=== PATIENT | male | born 1935 | race Caucasian/White ===

== ENCOUNTER 2020-08-10 10:20 | Emergency (ER) | payer MEDICARE, OTHER ==
[2020-08-10 10:39] VITALS: PULSE 64
--- NOTE | 2020-08-10 10:43 | EDM.PDOC ---
ED HPI GENERAL MEDICAL PROBLEM - General Chief Complaint: General Stated Complaint: WEAKNESS Time Seen by Provider: 08/10/20 10:35 Source of Information: Reports: Patient History Limitations: Reports: No Limitations - History of Present Illness INITIAL COMMENTS - FREE TEXT/NARRATIVE: 85 yo gentleman who was brought to the ER by EMS with concerns for generalized weakness. Patient lives alone. Reports that while attempting to get up from his recliner, he felt very weak as if he was going to Fall. Patient called his grand ruben who called EMS and patient was brought to the ER Denied any chest pain, nausea, vomiting or abdominal pain. Was brought to the ER due to worsening symptoms. Onset: Today Duration: Hour(s): (2 hours ago), Day(s): Location: Reports: Generalized - Related Data Allergies Allergy/AdvReac Type Severity Reaction Status Date / Time No Known Allergies Allergy Verified 08/07/16 13:46 Home Meds: Home Meds Aspirin [Adult Low Dose Aspirin EC] 81 mg PO DAILY 08/07/16 [History] Lisinopril/Hydrochlorothiazide [Lisinopril-Hctz 20-12.5 mg Tab] 1 tab PO DAILY 08/07/16 [History] Multivitamin [Multivitamins] 1 tab PO DAILY 08/07/16 [History] Polyethylene Glycol 3350 [MiraLAX] 1 dose PO DAILY 08/07/16 [History] Cephalexin [Keflex] 500 mg PO TID #30 cap 08/08/16 [Rx] Melatonin 5 mg PO BEDTIME PRN #30 tablet 08/08/16 [Rx] Meclizine [Antivert] 25 mg PO TID PRN #20 tab 08/10/20 [Rx] Past Medical History HEENT History: Reports: Hard of Hearing, Impaired Vision Cardiovascular History: Reports: Hypertension Respiratory History: Reports: None Gastrointestinal History: Reports: None Genitourinary History: Reports: None Musculoskeletal History: Reports: None Neurological History: Reports: None Psychiatric History: Reports: None Endocrine/Metabolic History: Reports: None Hematologic History: Reports: None Oncologic (Cancer) History: Reports: None Dermatologic History: Reports: None - Infectious Disease History Infectious Disease History: Reports: Chicken Pox, Measles, Mumps - Past Surgical History HEENT Surgical History: Reports: None Cardiovascular Surgical History: Reports: None Social & Family History - Family History Family Medical History: Noncontributory OBGYN: Reports: Endocrine/Metabolic: Reports: Diabetes, type II (brother) Other Endocrine/Metabolic Family History: brother Oncologic: Reports: Colon (brother) Other Oncologic Family History: renal cell carcinoma daughter - Living Situation & Occupation Living situation: Reports: Occupation: Retired ED ROS GENERAL - Review of Systems Review Of Systems: See Below Constitutional: Reports: Weakness HEENT: Reports: No Symptoms Respiratory: Reports: No Symptoms Cardiovascular: Reports: No Symptoms Endocrine: Reports: No Symptoms GI/Abdominal: Reports: No Symptoms : Reports: No Symptoms Musculoskeletal: Reports: No Symptoms Skin: Reports: No Symptoms Neurological: Reports: No Symptoms Psychiatric: Reports: No Symptoms Hematologic/Lymphatic: Reports: No Symptoms Immunologic: Reports: No Symptoms ED EXAM, GENERAL - Physical Exam Exam: See Below Exam Limited By: No Limitations General Appearance: Alert, WD/WN, No Apparent Distress Eye Exam: Bilateral Eye: PERRL Ears: Normal External Exam, Normal Canal, Hearing Grossly Normal, Normal TMs Ear Exam: Bilateral Ear: Auricle Normal Nose: Normal Inspection, Normal Mucosa, No Blood Throat/Mouth: Normal Inspection Head: Atraumatic, Normocephalic Neck: Normal Inspection Respiratory/Chest: No Respiratory Distress, Lungs Clear Cardiovascular: Normal Peripheral Pulses, Regular Rate, Rhythm, No Edema GI/Abdominal: Normal Bowel Sounds, Soft, Non-Tender, No Organomegaly, No Distention Back Exam: Normal Inspection, Full Range of Motion Extremities: Normal Inspection, Normal Range of Motion Neurological: Alert, Oriented, CN II-XII Intact, Normal Cognition Psychiatric: Normal Affect Skin Exam: Warm, Dry, Intact Lymphatic: No Adenopathy Course - Vital Signs Last Recorded V/S: Last Vital Signs Temp 36.4 C 08/10/20 10:20 Pulse 64 08/10/20 10:20 Resp 20 08/10/20 10:20 BP 182/90 H 08/10/20 10:20 Pulse Ox 100 08/10/20 10:20 - Orders/Labs/Meds Orders: Active Orders 24 hr Category Date Time Status CXR [Chest 2V] [CR] Stat Exams 08/10/20 10:45 Taken Sodium Chloride 0.9% [Normal Saline] 1,000 ml Med 08/10/20 11:00 Active IV ASDIRECTED Medication Orders Sodium Chloride (Normal Saline) 1,000 mls @ 100 mls/hr IV ASDIRECTED [facility] Labs: Laboratory Tests 08/10/20 08/10/20 08/10/20 Range/Units 10:29 10:29 10:29 WBC 5.0 (4.5-12.0) X10-3/uL RBC 4.98 (4.30-5.75) x10(6)uL Hgb 15.5 (13.5-17.8) g/dL Hct 46.9 (30.0-51.3) % MCV 94.1 (80-96) fL MCH 31.2 (27.7-33.6) pg MCHC 33.2 (32.2-35.4) g/dL RDW 13.6 (11.5-15.5) % Plt Count 168 (125-369) X10(3)uL MPV 8.8 (7.4-10.4) fL Neut % (Auto) 72.9 (46-82) % Lymph % (Auto) 16.4 (13-37) % Bee % (Auto) 9.7 (4-12) % Eos % (Auto) 0 L (1.0-5.0) % Baso % (Auto) 1 (0-2) % Neut # (Auto) 3.7 (1.6-8.3) # Lymph # (Auto) 0.8 (0.6-5.0) # Bee # (Auto) 0.5 (0.0-1.3) # Eos # (Auto) 0.0 (0.0-0.8) # Baso # (Auto) 0.0 (0.0-0.2) # Sodium 139 (135-145) mmol/L Potassium 4.1 (3.5-5.3) mmol/L Chloride 104 (100-110) mmol/L Carbon Dioxide 26 (21-32) mmol/L BUN 18 (7-18) mg/dL Creatinine 1.1 (0.70-1.30) mg/dL Est Cr Clr Drug Dosing 51.93 mL/min Estimated GFR (MDRD) > 60 (>60) BUN/Creatinine Ratio 16.4 (9-20) Glucose 107 (80-116) mg/dL Calcium 9.1 (8.6-10.2) mg/dL Total Bilirubin 1.1 (0.1-1.3) mg/dL AST 28 H (5-25) IU/L ALT 26 (12-36) U/L Alkaline Phosphatase 99 (56-112) IU/L Troponin I 8.3 (4.0-60.3) pg/mL C-Reactive Protein 0.6 (0.5-0.9) mg/dL Total Protein 7.6 (6.0-8.0) g/dL Albumin 3.4 (3.2-4.6) g/dL Globulin 4.2 g/dL Albumin/Globulin Ratio 0.8 Urine Color (YELLOW) Urine Appearance (CLEAR) Urine pH (5.0-6.5) Ur Specific [place] (1.010-1.025) Urine Protein (NEGATIVE) mg/dL Urine Glucose (UA) (NORMAL) mg/dL Urine Ketones (NEGATIVE) mg/dL Urine Occult Blood (NEGATIVE) Urine Nitrite (NEGATIVE) Urine Bilirubin (NEGATIVE) Urine Urobilinogen (NEGATIVE) mg/dL Ur Leukocyte Esterase (NEGATIVE) Urine RBC (0-5) Urine WBC (0-5) Ur Squamous Epith Cells (NS,R,O) Urine Bacteria (NS) Urine Mucus (NS) 08/10/20 Range/Units 10:55 WBC (4.5-12.0) X10-3/uL RBC (4.30-5.75) x10(6)uL Hgb (13.5-17.8) g/dL Hct (30.0-51.3) % MCV (80-96) fL MCH (27.7-33.6) pg MCHC (32.2-35.4) g/dL RDW (11.5-15.5) % Plt Count (125-369) X10(3)uL MPV (7.4-10.4) fL Neut % (Auto) (46-82) % Lymph % (Auto) (13-37) % Bee % (Auto) (4-12) % Eos % (Auto) (1.0-5.0) % Baso % (Auto) (0-2) % Neut # (Auto) (1.6-8.3) # Lymph # (Auto) (0.6-5.0) # Bee # (Auto) (0.0-1.3) # Eos # (Auto) (0.0-0.8) # Baso # (Auto) (0.0-0.2) # Sodium (135-145) mmol/L Potassium (3.5-5.3) mmol/L Chloride (100-110) mmol/L Carbon Dioxide (21-32) mmol/L BUN (7-18) mg/dL Creatinine (0.70-1.30) mg/dL Est Cr Clr Drug Dosing mL/min Estimated GFR (MDRD) (>60) BUN/Creatinine Ratio (9-20) Glucose (80-116) mg/dL Calcium (8.6-10.2) mg/dL Total Bilirubin (0.1-1.3) mg/dL AST (5-25) IU/L ALT (12-36) U/L Alkaline Phosphatase (56-112) IU/L Troponin I (4.0-60.3) pg/mL C-Reactive Protein (0.5-0.9) mg/dL Total Protein (6.0-8.0) g/dL Albumin (3.2-4.6) g/dL Globulin g/dL Albumin/Globulin Ratio Urine Color Yellow (YELLOW) Urine Appearance Clear (CLEAR) Urine pH 7.0 H (5.0-6.5) Ur Specific [place] 1.015 (1.010-1.025) Urine Protein Negative (NEGATIVE) mg/dL Urine Glucose (UA) Normal (NORMAL) mg/dL Urine Ketones 15 H (NEGATIVE) mg/dL Urine Occult Blood Negative (NEGATIVE) Urine Nitrite Negative (NEGATIVE) Urine Bilirubin Negative (NEGATIVE) Urine Urobilinogen Normal (NEGATIVE) mg/dL Ur Leukocyte Esterase Negative (NEGATIVE) Urine RBC 0-5 (0-5) Urine WBC 0-5 (0-5) Ur Squamous Epith Cells Rare (NS,R,O) Urine Bacteria Rare H (NS) Urine Mucus Moderate H (NS) Meds: Medications Generic Name Dose Route Start Last Admin Trade Name Freq PRN Reason Stop Dose Admin Sodium Chloride 1,000 mls @ 100 mls/hr 08/10/20 11:00 Normal Saline IV ASDIRECTED YOUSUF Departure - Departure Time of Disposition: 12:08 Disposition: Home, Self-Care 01 Condition: Good Clinical Impression: Generalized weakness, Dizziness and giddiness - Discharge Information *PRESCRIPTION DRUG MONITORING PROGRAM REVIEWED*: No *COPY OF PRESCRIPTION DRUG MONITORING REPORT IN PATIENT FELY: No Prescriptions: Meclizine [Antivert] 25 mg PO TID PRN #20 tab PRN Reason: Dizziness Referrals: PCP,None [Primary Care Provider] - Forms: ED Department Discharge Additional Instructions: Follow with PCP Fall precaution Return if symptoms worsen Call your Physician or Return to Emergency Department if: * Your condition worsens in any way. * You develop fever greater than 100.4. * You have vomitting that does not stop with medications. * You have pain that is not controlled with medications. Sepsis Event Note (ED) - Evaluation Sepsis Screening Result: No Definite Risk - Focused Exam Vital Signs: Vital Signs Temp Pulse Resp BP Pulse Ox 08/10/20 10:20 36.4 C 64 20 182/90 H 100 - My Orders Last 24 Hours: My Active Orders 08/10/20 10:45 CXR [Chest 2V] [CR] Stat 08/10/20 11:00 Sodium Chloride 0.9% [Normal Saline] 1,000 ml IV ASDIRECTED - Assessment/Plan Last 24 Hours: My Active Orders 08/10/20 10:45 CXR [Chest 2V] [CR] Stat 08/10/20 11:00 Sodium Chloride 0.9% [Normal Saline] 1,000 ml IV ASDIRECTED
[2020-08-10] MEDS: Sodium Chloride 0.9% 1,000 ML IV SCH (11:25)
--- NOTE | 2020-08-10 12:12 | CR ---
INDICATION: Weakness. CHEST, 2 VIEWS: Two AP views and a lateral view of the chest were obtained 08/10/20 and compared with 08/07/16. Overlying snaps are noted. The aorta is tortuous with calcification in the arch. The heart did not appear to be enlarged. A definite active infiltrate or effusion was not identified. [id number] degenerative changes noted in the lower thoracic spine. IMPRESSION: No acute process. MTDD
[2020-08-10 12:56] VITALS: BP 183/77
== END 2020-08-10 12:28 | disposition home or self-care (01) ==
LOC: FB.ED 10:20
DX: R53.1 Weakness (principal); R42 Dizziness and giddiness; I10 Essential (primary) hypertension; Z79.82 Long term (current) use of aspirin; Z79.899 Other long term (current) drug therapy
CPT/HCPCS: 36415; 71046; 80053; 81001; 84484; 85025; 86140; 96360; 99283; 99285-25; J7030

== ENCOUNTER 2022-10-15 20:24 | Emergency (ER) | payer MEDICARE, OTHER ==
[2022-10-15] MEDS ORDERED: HYDROmorphone 2 MG/ML SDV IVPUSH ONE (20:33)
[2022-10-15] MEDS ORDERED: Sodium Chloride 0.9% 10 ML Syringe FLUSH PRN (20:33)
[2022-10-15 21:53] VITALS: BP 161/77; PULSE 82
== END 2022-10-15 21:25 | disposition home or self-care (01) ==
LOC: FB.ED 20:24
DX: S70.02XA Contusion of left hip, initial encounter (principal); I10 Essential (primary) hypertension; Z79.82 Long term (current) use of aspirin; Z79.899 Other long term (current) drug therapy; W01.0XXA Fall on same level from slipping, tripping and stumbling without subsequent striking against object, initial encounter
CPT/HCPCS: 73502; 96374; 99284; J1170; J3490